=== PATIENT | female | born 1960 | race Hispanic/Latino ===

== ENCOUNTER 2022-12-14 15:55 | Outpatient (CLI) | payer OTHER | END 2022-12-14 15:56 | disposition home or self-care (01) | LOC: ULT 15:55 | PROVIDERS: ATTEND Nurse Practitioner Family | DX: M79.605 Pain in left leg (principal) ==

== ENCOUNTER 2025-03-26 16:02 | Outpatient (CLI) | payer MEDICARE, MEDICAID | END 2025-03-26 16:03 | disposition home or self-care (01) | LOC: BICRAD 16:02 | PROVIDERS: ATTEND Nurse Practitioner Family | DX: K59.00 Constipation, unspecified (principal) | CPT/HCPCS: 74019 ==